=== PATIENT | female | born 1990 | race Caucasian/White ===

== ENCOUNTER 2017-10-02 18:29 | Emergency (ER) | payer BC, MEDICAID ==
[2017-10-02] MEDS ORDERED: ONDANSETRON HCL IV 4 MG/2 ML VIAL IV ONE (20:21)
[2017-10-02] MEDS ORDERED: 0.9 % SODIUM CHLORIDE 1,000 ML BAG IV ONE (20:21)
[2017-10-02] MEDS ORDERED: MORPHINE SULFATE 5 MG/ML PFS IVP ONE (20:22)
--- NOTE | 2017-10-02 20:25 | Emergency Department Record ---
History of Present Illness - General Stated Complaint: PAIN LOWER BACK/KIDNEY Time Seen by Provider: 10/02/17 20:16 Source: Patient, Family Mode of Arrival: Ambulatory Limitations: No limitations - History of Present Illness Initial Comments: 27 yo female presents with left flank pain. The pain is sharp and seems to come and go. The pain radiates around the left side. NO fevers. She did have some associated nausea. No fever or vomiting. She reports a prior history of renal stones, cysts, and lupus. She has seen Dr Ramos in the past of urology. No gross hematuria. No rash. MD Complaint: Abdominal pain, Flank pain (Left) -: Hour(s) Location: L Flank Radiation: L flank Migration to: L Flank Quality: Aching, Sharp Consistency: Intermittent Improves With: Nothing Worsens With: Nothing Associated Symptoms: Anorexia - Related Data Previous Rx's Medication Instructions Recorded Hydrocodone/Acetaminophen [Welcome 1 tab PO Q8H PRN #10 tab 10/02/17 5mg/325mg] Ondansetron [Zofran Odt] 4 mg PO Q8H #15 tab.rapdis 10/02/17 Allergies Allergy/AdvReac Type Severity Reaction Status Date / Time adhesive tape AdvReac BLISTERS Verified 10/02/17 20:30 Review of Systems Constitutional: Denies: Chills, Fever, Malaise, Weakness Eyes: Denies: Eye discharge ENT: Denies: Congestion, Throat pain Respiratory: Denies: Cough, Dyspnea, Hemoptysis, Stridor, Wheezes Cardiovascular: Denies: Chest pain, Palpitations, Syncope Endocrine: Denies: Fatigue Gastrointestinal: Reports: As per HPI, Abdominal pain, Nausea. Denies: Diarrhea , Vomiting Genitourinary: Denies: Dysuria, Frequency, Hematuria, Urgency Musculoskeletal: Reports: As per HPI, Back pain. Denies: Arthralgia Skin: Denies: Bruising, Change in color, Rash Neurological: Denies: Headache, Numbness, Weakness Psychiatric: Denies: Anxiety Hematological/Lymphatic: Denies: Blood Clots, Easy bleeding, Easy bruising, Swollen glands Physical Exam - General General Appearance: Alert, Oriented x3, Cooperative, No acute distress Limitations: No limitations - Head Head exam: Normal inspection - Eye Eye exam: Normal appearance. negative: Conjunctival injection, Scleral icterus - ENT ENT exam: Normal exam, Mucous membranes moist Ear exam: Normal external inspection Nasal Exam: Normal inspection Mouth exam: Normal external inspection - Neck Neck exam: Normal inspection - Cardiovascular Cardiovascular Exam: Regular rate, Normal rhythm, Normal heart sounds - GI/Abdominal GI/Abdominal exam: Soft. negative: Distended, Guarding, Hernia, Mass, Rebound, Rigid, Tenderness - Rectal Rectal exam: Deferred - exam: Deferred - Extremities Extremities exam: Normal inspection, Full ROM, Normal capillary refill. negative: Tenderness - Back Back exam: Reports: Normal inspection, Full ROM. Denies: CVA tenderness (R), CVA tenderness (L), Muscle spasm, Paraspinal tenderness, Rash noted, Tenderness , Vertebral tenderness - Neurological Neurological exam: Alert, Normal gait, Oriented X3 - Psychiatric Psychiatric exam: Normal affect, Normal mood - Skin Skin exam: Dry, Intact, Normal color, Warm Course - Reevaluation(s) Reevaluation #1: 10/02/17 20:51 The CBC and UA are negative The HCG is negative 10/02/17 21:57 CT completed awaiting results 10/02/17 22:16 The pain is well controlled Awaiting the CT report 10/02/17 22:39 CT demonstrates distal a left distal stone with mild HN The L kidney demonstrates cysts and mass. The patient is aware and had MRI recently Medical Decision Making - Lab Data Result diagrams: 10/02/17 20:40 10/02/17 20:40 Disposition Disposition: Discharge Clinical Impression: Renal stone Disposition: Home, Self-Care Condition: (1) Good Instructions: Renal Colic (ED) Additional Instructions: Return if you have uncontrolled pain or any fever Call to follow up with your urologist as an outpatient Prescriptions: Hydrocodone/Acetaminophen [Welcome 5mg/325mg] 1 tab PO Q8H PRN #10 tab PRN Reason: Pain - General Ondansetron [Zofran Odt] 4 mg PO Q8H #15 tab.rapdis Time of Disposition: 22:41 Quality - Quality Measures Quality Measures: N/A - Blood Pressure Screening Does Patient Have Any of the Following: No Blood Pressure Classification: Pre-Hypertensive BP Reading Systolic Measurement: 144 Diastolic Measurement: 84 Screening for High Blood Pressure: < Pre-Hypertensive BP, F/U Documented > [ [id number]] Pre-Hypertensive Follow-up Interventions: Referral to alternative/primary care provider.
[2017-10-02 20:39] LABS: URINE APPEARANCE CLEAR; URINE BILIRUBIN NEGATIVE (NEGATIVE); URINE BLOOD MODERATE (NEGATIVE); URINE COLOR YELLOW; URINE GLUCOSE (UA) NEGATIVE (NEGATIVE); URINE KETONE NEGATIVE (NEGATIVE); URINE LEUKOCYTE ESTERASE NEGATIVE (NEGATIVE); URINE NITRITE NEGATIVE (NEGATIVE); URINE PROTEIN NEGATIVE (NEGATIVE); URINE UROBILINOGEN 0.2 E.U./dL (0.20 - 1.00)
[2017-10-02 20:42] LABS: HCG,QUALITATIVE URINE NEGATIVE (NEGATIVE); URINE BACTERIA NONE SEEN; URINE EPITHELIAL CELLS 0 - 2 (FEW); URINE WBC 0 - 2 (0-2/hpf)
[2017-10-02 20:48] LABS: BASO % 0.4 % (0-6); EOS % 1.6 % (0-6); GRAN % 60.5 % (47-80); HEMATOCRIT 38.9 % (35.0-47.0); HEMOGLOBIN 13.1 gm/dl (11.6-16.0); LYMPH % 27.2 % (16-45); MEAN CELL VOLUME 87.4 fl (81-97); MEAN CORPUSCULAR HEMOGLOBIN 29.4 pg (27-33); MEAN CORPUSCULAR HGB CONC 33.7 g/dl (32-36); MEAN PLATELET VOLUME 9.6 fl (7.4-10.4); MONO % 10.3 % (0-9); PLATELET COUNT 309 K/uL (130-400); RED BLOOD COUNT 4.45 M/uL (3.80-5.40); WHITE BLOOD COUNT W/O DIFF 9.8 K/uL (4.2-12.2)
[2017-10-02 20:56] LABS: BLOOD UREA NITROGEN 13 mg/dL (6-20); CREATININE 0.7 mg/dL (0.5-0.9); EST GLOMERULAR FILTRATION RATE > 60 mL/min
[2017-10-02 20:59] LABS: GLUCOSE,RANDOM 94 mg/dL (74-109)
[2017-10-02] MEDS ORDERED: ONDANSETRON 4 MG ODT TABLET SL ONE (22:38)
[2017-10-02] MEDS ORDERED: HYDROCODONE/APAP 5/325MG TABLET PO ONE (22:38)
--- NOTE | 2017-10-03 08:58 | CT SCAN REPORT ---
EXAM: CT SCAN ABDOMEN/PELVIS WO CONTRAST HISTORY: LEFT FLANK PAIN, HISTORY OF STONES. TECHNIQUE: Axial CT scan of the abdomen and pelvis performed without oral or IV contrast. COMPARISON: None. FINDINGS: There are multiple tiny calcifications in the right kidney, likely representing currently nonobstructing intrarenal calculi on the right. At least one is seen in the lower pole of the left kidney as well. Minimal hydronephrosis and hydroureter on the left with the slightly dilated left ureter followed down to the bladder, where it appears to lead to a tiny calcification approximately 2.4 mm in size consistent with a tiny distal left ureteral calculus at the left UVJ causing mild hydronephrosis on the left. There is no hydronephrosis or hydroureter on the right with no right ureteral calculus identified. No calcified gallstones are seen within the gallbladder. 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 There is a small exophytic mass approximately 11 mm in size arising from the lateral aspect of the lower pole of the left kidney, which has a CT density of 16. This is probably just a cyst but is incompletely evaluated without IV contrast. If clinically warranted, non-emergent MRI of the kidneys could be performed to confirm its identity as a cyst and could also confirm the identity of the other mass as a small angiomyolipoma. Evaluation of the bowel and viscera is very limited without oral or IV contrast. Given this limitation, no definite hepatic, splenic, adrenal, or pancreatic mass identified. No appendicitis is evident. No free intraperitoneal air or free intraperitoneal fluid identified. IMPRESSION: 1. APPEARANCE CONSISTENT WITH A TINY DISTAL LEFT URETERAL CALCULUS CAUSING LOW- GRADE HYDRONEPHROSIS AND HYDROURETER ON THE LEFT. 2. ADDITIONAL BILATERAL TINY CURRENTLY NONOBSTRUCTING INTRARENAL CALCULI. 3. 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 THERE IS ALSO A SMALL EXOPHYTIC MASS ARISING LATERALLY FROM THE LOWER POLE OF THE LEFT KIDNEY, PROBABLY JUST A CYST, ALTHOUGH INCOMPLETELY EVALUATED ON THIS NONCONTRAST CT DESCRIBED ABOVE. 4. NO FREE AIR OR FREE FLUID EVIDENT. NO APPENDICITIS EVIDENT. JOB NUMBER: [id number] MTDD
== END 2017-10-02 22:57 | disposition home or self-care (01) ==
LOC: ER 18:29
DX: N13.2 Hydronephrosis with renal and ureteral calculous obstruction (principal); R11.0 Nausea; Z87.442 Personal history of urinary calculi
CPT/HCPCS: 99284 ×2; 96374; 96375; 96361; 85025; 80048; 81001; 81025; 74176; J2405; J2270; J7030